=== PATIENT | male | born 1955 | race Caucasian/White ===

== ENCOUNTER 2020-08-02 05:56 | Day surgery (SDC) | payer BC ==
[~2020-08-02] VITALS: Ht 175.3 cm; Wt 70.6 kg
[~2020-08-02 05:56] MED LIST: NONE PER PT
[2020-08-02 06:51] VITALS: BP 116/78
[2020-08-02] MEDS ORDERED: CHLORHEXIDINE 15 ML UDC PO ONE (07:00)
[2020-08-02] MEDS ORDERED: LACTATED RINGERS 1,000 ML IV SCH (07:00)
[2020-08-02] MEDS ORDERED: BUPIVACAINE/PF 0.5% ONE (07:07)
[2020-08-02] MEDS ORDERED: LIDOCAINE/PF 1%, 30ML ONE (07:08)
[2020-08-02] MEDS ORDERED: morphine SULFATE/PF 1 MG/ML, 10ML ONE (07:08)
[2020-08-02] MEDS ORDERED: FENTANYL PF 100 MCG/2ML ONE (07:08)
[2020-08-02] MEDS ORDERED: EPINEPHRINE 1 MG/ML, 1ML ONE (07:08)
[2020-08-02] MEDS ORDERED: VANCOMYCIN 1,000 MG ONE (07:08)
[2020-08-02] MEDS ORDERED: BACITRACIN 50,000 UNIT ONE (07:09)
[2020-08-02] MEDS ORDERED: FENTANYL PF 250 MCG/5ML ONE (07:14)
[2020-08-02] MEDS ORDERED: MIDAZOLAM 1 MG/ML, 2ML ONE (07:14)
[2020-08-02] MEDS ORDERED: ACETAMINOPHEN 500 MG TABLET PO ONE (07:30)
[2020-08-02] MEDS ORDERED: PROPOFOL 50 ML ONE ×2 (07:31→09:10)
[2020-08-02] MEDS ORDERED: ONDANSETRON 2MG/ML, 2ML ONE (07:44)
[2020-08-02] MEDS ORDERED: SUCCINYLCHOLINE 20 MG/ML, 10ML ONE (07:44)
[2020-08-02] MEDS ORDERED: CEFAZOLIN 1,000 MG ONE (07:44)
[2020-08-02] MEDS ORDERED: PROPOFOL 10 MG/ML, 20ML ONE (07:44)
[2020-08-02] MEDS ORDERED: DEXAMETHASONE 4 MG/ML, 1ML ONE (07:44)
[2020-08-02] MEDS ORDERED: hydrALAzine 20 MG/ML, 1ML IV PRN (08:00)
[2020-08-02] MEDS ORDERED: EPHEDRINE 50 MG/ML, 1ML IVPush PRN (08:00)
[2020-08-02] MEDS ORDERED: FENTANYL PF 100 MCG/2ML IV PRN (08:00)
[2020-08-02] MEDS ORDERED: LABETALOL 5MG/ML, 20ML IV PRN (08:00)
[2020-08-02] MEDS ORDERED: ONDANSETRON 2MG/ML, 2ML IVPush PRN (08:00)
[2020-08-02] MEDS ORDERED: HYDROmorphone 1 MG/ML, 1ML INJ IVPush PRN (08:00)
[2020-08-02] MEDS ORDERED: OXYcodone 5 MG/5 ML ORAL.SOL UDC PO PRN (08:00)
[2020-08-02] MEDS ORDERED: PROMETHAZINE 25 MG/ML, 1ML IVPush PRN (08:00)
[2020-08-02] MEDS ORDERED: KETOROLAC 30 MG/1 ML ONE (08:03)
[2020-08-02] MEDS ORDERED: EPHEDRINE 50 MG/ML, 1ML ONE (08:11)
[2020-08-02] MEDS ORDERED: GENTAMICIN 80 MG/2 ML ONE ×2 (08:17)
== END 2020-08-02 12:10 | disposition home or self-care (01) ==
LOC: OUT 05:56
PROVIDERS: ATTEND Orthopaedic Surgery Orthopaedic Surgery of the Spine
DX: M51.16 Intervertebral disc disorders with radiculopathy, lumbar region (principal); M51.17 Intervertebral disc disorders with radiculopathy, lumbosacral region; M48.061 Spinal stenosis, lumbar region without neurogenic claudication; M48.07 Spinal stenosis, lumbosacral region; Z20.822 Contact with and (suspected) exposure to COVID-19
CPT/HCPCS: 36415; 63042; 63044; 72100; 80074; 87635; J0171; J0330; J0690; J1100; J1580; J1885; J2250; J2405; J2704; J3010; J7120; J2274; J3370